=== PATIENT | female | born 1980 | race Caucasian/White ===

== ENCOUNTER 2017-04-24 08:15 | Outpatient (RCR) ==
--- NOTE | 2017-04-14 11:53 | RS.OPPTEV2 ---
Date of Note: 04/11/17 Visit #: 1 Date of Evaluation: 04/11/17 Payer Source: Medicaid Treatment Diagnosis: Low back pain History of Condition/Mechanism of Injury:: Patient reports she has had a history of back pain. 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 States this week she had even more back pain. States she woke up two days ago and could barely walk or sit. Prior Level of Function.....Patient was independent with: ADL's, Self Care, Work /Vocation, Caregiving, Ambulation/Mobility, Community Integration/Access Functional Limitations: Sleep, Self Care, ADL's, Lifting, Sitting, Standing, Ambulation, Community Access/Integration Current Subjective/complaints:: Patient reports having back pain mostly when staying in one position for too long and with bending and lifting. 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 States she does better when she is moving. Prolonged standing or sitting bothers her back. States she has to change positions frequently. She gets some benefit with using a heating pad or taking hot baths. Medical History Medical History: Arthritis (knees, back) Smoking Status: Former smoker Hx Home Medications: Trazadone, Gabapentin, Ibuprofen Pain Assessment - Pain Description Pain Location: lumbosacral area Current Pain Intensity: 9/10 Worst Pain Intensity: not quantified Functional Outcome Measure Oswestry LBP: 46 - G Codes & Severity Modifier G Codes & Modifier: NA Source of G Code score: NA Gait - Gait Pattern Gait Comments: Patient ambulates independently without an assistive device. No obvious gait deviations. - ROM Lumbar Flexion: Hand reach to Mid-Thighs Sidebending to Left: Reach to Mid-thigh Sidebending to Right: Reach to Mid-thigh Lumbar Spine ROM Limitations: Pain Comments: Bilateral LE AROM is WFL's. - Strength Trunk Rotation: 4 Good Comments: Right hip flexion 4 to 4+/5, all else of LE strength is 5/5. - Special Tests JOSE Test: Negative Left, Positive Right SLR Test: Negative Left, Negative Right Seated Dural Stretch Test: Negative Left, Negative Right SI Joint Compression: Positive Palpation Comments:: Right SI region is very tender. Pressure anteriorly to the sacrum is tender. Reports no significant tenderness along the lumbar spine. Demonstrates moderate muscle guarding along the lower lumbar paraspinals bilaterally. Sensation - Sensation Right Lower Extremity: Intact/Normal Left Lower Extremity: Intact/Normal Additional Comments: Additional Comments: Right LE is shorter in supine. This leg length difference is reduced with light stretching to the right hamstring. SLR left to 60 degrees , right 50 degrees. - Treatment Modality: Ultrasound Parameters/Method Applied: X 9 mins over right lumbosacral region @ 1.5 w/cm2 continuous. Patient Position: Left Sidelying Interventions - Exercise/Activities/Manual Therapy Exercises/Activities: Patient instructed in isometric hip flexion for the right hip. Manual Therapy: NA HOME EXERCISE PROGRAM: isometric hip flexion for the right hip. - Charges Total Direct Minutes: 65 mins Total Treatment Time: 65 mins Procedures billed for this date of service:: Low Eval X3, US Assessment Assessment: Patient presents to therapy with a diagnosis of Low back pain. Patient reports difficulty tolerating prolonged standing or sitting. Reports tenderness over right SI region and demonstrates Special Tests positive for SI joint dysfunction. She demonstrates muscle guarding along the lower lumbar spine and limited lumbar AROM. She demonstrates good potential to benefit from activities to address SI dysfunction along the modalities to reduce tenderness and back pain. Patient Education: Education of diagnosis, Body/Joint mechanics, Home Exercise Program, Home Safety, Education of Plan of Care Rehab Potential: Good Short Term Goals Goal #1: Patient independent and compliant in HEP. Goal to be met by: 04/28/17 Goal #2: Right SI tenderness decreased to minimal. Goal to be met by: 04/28/17 Goal #3: Muscle tone along lumbar spine decreased to minimal. Goal to be met by: 04/28/17 [employer] Counselor Goals Goal #1: Pt knows HEP and muscle energy techniques to continue after D/C. Goal to be met by: 05/24/17 Goal #2: Score on Oswestry LBP scale improved to 26. Goal to be met by: 05/24/17 Goal #3: Patient to tolerate prolonged sitting and standing with minimal discomfort. Goal to be met by: 05/24/17 Goal #4: Pt with good understanding of back safety and proper body mechanics. Goal to be met by: 05/24/17 Plan - Treatment to be Provided Procedures: Therapeutic Exercises, Therapeutic Activity, Manual Therapy, Patient Education Modalities: Electrical Stimulation, Ultrasound/Phonophoresis, Cryotherapy, Hot Packs - Treatment Plan Frequency: 3 X week Duration: 4 weeks ORDER # VISITS AND/OR THROUGH DATE: 05/24/17 - Treatment Code (1) Low back pain Qualifiers: Chronicity: acute Back pain laterality: unspecified Sciatica presence: unspecified whether sciatica present Qualified Description: Acute low back pain, unspecified back pain laterality, with sciatica presence unspecified Qualifier Code(s): (M54.5) Low back pain (2) SI (sacroiliac) joint dysfunction Comments: M53.3
--- NOTE | 2017-04-15 09:13 | RS.OPPTDN ---
Subjective Date of Note: 04/15/17 Visit #: 2 Date of Evaluation: 04/11/17 Payer Source: Medicaid Treatment Diagnosis: Low back pain Current Subjective/complaints:: Patient says her pain is 6-7/10 and mostly to the R SI. 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 She is unable to tell if u/s helped at eval, but agreeable to continued treatment. Pain Assessment - Pain Description Pain Location: lumbosacral area Current Pain Intensity: 6-7/10 - Treatment Modality: Ultrasound Parameters/Method Applied: 1.6 w/cm2 continuous to the R lumbar paraspinals and to the SI region x 12 mins Patient Position: Left Sidelying - Heat/Cryotherapy Treatment: Hot Pack (15 mins to the mid to low back in supine) Interventions - Exercise/Activities/Manual Therapy Exercises/Activities: Patient received passive HS, piriformis, and lower trunk rotation stretch to the R LE. She performs isometric hip abd, flexion, pillow squeezes, QS to the R x 10reps. Patient was encouraged to use proper body mechanics (when possible) and reviewed HEP. Recommended her to use pillow support when she lays on her L side. Total minutes of Exercise: 12 Manual Therapy: NA HOME EXERCISE PROGRAM: isometric hip flexion for the right hip. - Charges Total Direct Minutes: 24 Total Treatment Time: 39 Procedures billed for this date of service:: hp, u/s, ex Assessment: Patient jerry modality and therex well. She has reduced pain level compared to eval and also after session today. Activity level at work affects her pain, but she remains positive about PT sessions. Patient Education: Education of diagnosis, Body/Joint mechanics, Home Exercise Program, Home Safety, Activity Modification, Education of Plan of Care Patient demonstrates compliance with HEP?: Yes Short Term Goals Goal #1: Patient independent and compliant in HEP. Goal to be met by: 04/28/17 Progress towards Goal:: Progressing Goal #2: Right SI tenderness decreased to minimal. Goal to be met by: 04/28/17 Goal #3: Muscle tone along lumbar spine decreased to minimal. Goal to be met by: 04/28/17 Intermediate Goals Goal #1: Pt knows HEP and muscle energy techniques to continue after D/C. Goal to be met by: 05/24/17 Goal #2: Score on Oswestry LBP scale improved to 26. Goal to be met by: 05/24/17 Goal #3: Patient to tolerate prolonged sitting and standing with minimal discomfort. Goal to be met by: 05/24/17 Goal #4: Pt with good understanding of back safety and proper body mechanics. Goal to be met by: 05/24/17 Plan PLAN OF CARE EXPIRES ON:: 05/24/17 ORDER # VISITS AND/OR THROUGH DATE: 05/24/17 PLAN: Continue Plan of Care
--- NOTE | 2017-04-18 09:36 | RS.OPPTDN ---
Subjective Date of Note: 04/18/17 Visit #: 3 Date of Evaluation: 04/11/17 Payer Source: Medicaid Treatment Diagnosis: Low back pain Current Subjective/complaints:: Patient says that her last treatment helped, but once she began her shift at work, pain returned. She says she has been performing HEP as well and taking hot baths to reduce pain. Pain Assessment - Pain Description Pain Location: R lumbosacral area Current Pain Intensity: 5/10 - Treatment Modality: Ultrasound Parameters/Method Applied: continuous @ 1.6 w/cm2 x 12 mins to the R lumbar paraspinals and SI joint Patient Position: Left Sidelying - Heat/Cryotherapy Treatment: Hot Pack (mid to low back/SI in supine x 20 mins) Interventions - Exercise/Activities/Manual Therapy Exercises/Activities: Patient received passive HS, piriformis, and lower trunk rotation stretch to the R LE. She performs isometric hip abd, flexion, pillow squeezes, QS to the R x 10reps. Reviewed body mechanics. Patient now has a prescription for flexeril per her request and will begin to take it. Total minutes of Exercise: 16 Manual Therapy: NA HOME EXERCISE PROGRAM: isometric hip flexion for the right hip. - Charges Total Direct Minutes: 28 Total Treatment Time: 48 Procedures billed for this date of service:: hp, u/s, ex Assessment: Patient experiencing pain reduction to the low back and R SI following her last session, but does re-irritate the area by work duties. She remains very tight and guarded with stretches today. Patient Education: Education of diagnosis, Body/Joint mechanics, Home Exercise Program, Home Safety, Activity Modification, Education of Plan of Care Patient demonstrates compliance with HEP?: Yes Short Term Goals Goal #1: Patient independent and compliant in HEP. Goal to be met by: 04/28/17 Progress towards Goal:: Progressing Goal #2: Right SI tenderness decreased to minimal. Goal to be met by: 04/28/17 Goal #3: Muscle tone along lumbar spine decreased to minimal. Goal to be met by: 04/28/17 Residential Goals Goal #1: Pt knows HEP and muscle energy techniques to continue after D/C. Goal to be met by: 05/24/17 Goal #2: Score on Oswestry LBP scale improved to 26. Goal to be met by: 05/24/17 Goal #3: Patient to tolerate prolonged sitting and standing with minimal discomfort. Goal to be met by: 05/24/17 Goal #4: Pt with good understanding of back safety and proper body mechanics. Goal to be met by: 05/24/17 Plan PLAN OF CARE EXPIRES ON:: 05/24/17 ORDER # VISITS AND/OR THROUGH DATE: 05/24/17 PLAN: Progress Exercises
--- NOTE | 2017-04-22 09:29 | RS.OPPTDN ---
Subjective Date of Note: 04/22/17 Date of Evaluation: 04/11/17 Payer Source: Medicaid Treatment Diagnosis: Low back pain Current Subjective/complaints:: Patient says she had a hard shift last night. 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 She says she no longer has the pain behind the R knee and exercises are not bothering her either. Pain Assessment - Pain Description Pain Location: R lumbosacral area Current Pain Intensity: 5/10 - Treatment Modality: Ultrasound Parameters/Method Applied: Continuous 1.6 w/cm2 x 10 mins to R lumbar paraspinals in sidelying - Heat/Cryotherapy Treatment: Hot Pack (mid to low back in supine x 20 mins) Interventions - Exercise/Activities/Manual Therapy Exercises/Activities: Patient received passive HS, piriformis, and lower trunk rotation stretch to the R LE. She performs isometric hip abd, flexion, pillow squeezes, QS to the R x 10reps. Reviewed body mechanics. Total minutes of Exercise: 17 Manual Therapy: NA HOME EXERCISE PROGRAM: isometric hip flexion for the right hip. - Charges Total Direct Minutes: 27 Total Treatment Time: 47 Procedures billed for this date of service:: hp, u/s, ex Assessment: Patient demo improved flexibility to R HS today, no longer has pain to the R posterior knee, and decreased pain to the low back. She has relief with treatment, but symptoms elevate depending on patient load at work. Patient Education: Education of diagnosis, Body/Joint mechanics, Home Exercise Program, Home Safety, Activity Modification, Education of Plan of Care Patient demonstrates compliance with HEP?: Yes Short Term Goals Goal #1: Patient independent and compliant in HEP. Goal to be met by: 04/28/17 Progress towards Goal:: Progressing Goal #2: Right SI tenderness decreased to minimal. Goal to be met by: 04/28/17 Progress towards Goal:: Progressing Goal #3: Muscle tone along lumbar spine decreased to minimal. Goal to be met by: 04/28/17 [employer] Field Technician Goals Goal #1: Pt knows HEP and muscle energy techniques to continue after D/C. Goal to be met by: 05/24/17 Goal #2: Score on Oswestry LBP scale improved to 26. Goal to be met by: 05/24/17 Goal #3: Patient to tolerate prolonged sitting and standing with minimal discomfort. Goal to be met by: 05/24/17 Goal #4: Pt with good understanding of back safety and proper body mechanics. Goal to be met by: 05/24/17 Plan PLAN OF CARE EXPIRES ON:: 05/24/17 ORDER # VISITS AND/OR THROUGH DATE: 05/24/17 PLAN: Continue Plan of Care
--- NOTE | 2017-04-24 09:48 | RS.OPPTDN ---
Subjective Date of Note: 04/24/17 Visit #: 5 Date of Evaluation: 04/11/17 Payer Source: Medicaid Treatment Diagnosis: Low back pain Current Subjective/complaints:: Patient says she is hurting more today. She says she is not sure that it is from her work shift, slept wrong, or cooler weather. Pain Assessment - Pain Description Pain Location: R lumbosacral area Current Pain Intensity: 5/10 - Treatment Modality: Ultrasound Parameters/Method Applied: continuous @ 1.6 w/cm2 x 10 mins to R lumbar paraspinals Patient Position: Left Sidelying - Heat/Cryotherapy Treatment: Hot Pack (mid to low back in supine x 20 mins) Interventions - Exercise/Activities/Manual Therapy Exercises/Activities: Patient continues to receive passive SKTC, HS, piriformis , and lower trunk rotation stretch to the R LE. She performs isometric hip abd , flexion, pillow squeezes, QS to the R x 10reps. SLR 2x5. Reviewed body mechanics. Total minutes of Exercise: 18 Manual Therapy: NA HOME EXERCISE PROGRAM: isometric hip flexion for the right hip. - Charges Total Direct Minutes: 28 Total Treatment Time: 48 Procedures billed for this date of service:: hp, u/s, ex Assessment: Patient with elevated pain today for unknown reason. She maintains pain at 5/10 however. Pain extends to both sides of her back today, but is relieved with modalities and therex today. Improved HS flexibility as well. Patient Education: Education of diagnosis, Body/Joint mechanics, Home Exercise Program, Home Safety, Activity Modification, Education of Plan of Care Patient demonstrates compliance with HEP?: Yes Short Term Goals Goal #1: Patient independent and compliant in HEP. Goal to be met by: 04/28/17 Progress towards Goal:: Progressing Goal #2: Right SI tenderness decreased to minimal. Goal to be met by: 04/28/17 Progress towards Goal:: Progressing Goal #3: Muscle tone along lumbar spine decreased to minimal. Goal to be met by: 04/28/17 Watch [employer] Cutter Goals Goal #1: Pt knows HEP and muscle energy techniques to continue after D/C. Goal to be met by: 05/24/17 Goal #2: Score on Oswestry LBP scale improved to 26. Goal to be met by: 05/24/17 Goal #3: Patient to tolerate prolonged sitting and standing with minimal discomfort. Goal to be met by: 05/24/17 Goal #4: Pt with good understanding of back safety and proper body mechanics. Goal to be met by: 05/24/17 Plan PLAN OF CARE EXPIRES ON:: 05/24/17 ORDER # VISITS AND/OR THROUGH DATE: 05/24/17 PLAN: Continue Plan of Care (continue x 1 more session)
[2017-04-30 07:55] VITALS: BMI 58.1
--- NOTE | 2017-04-30 13:07 | RS.CXNS ---
Date of scheduled appointment: 04/30/17 Type: Cancel Reason for Cancel/NS: Patient leaves message saying she is in the emergency room
== END 2017-05-01 ==
PROVIDERS: ATTEND Physician Assistant
DX: M54.5 Low back pain (principal); M54.6 Pain in thoracic spine

== ENCOUNTER 2017-04-30 07:48 | Emergency (ER) ==
[2017-04-30 07:55] VITALS: BP 126/83; TEMP 99; BMI 58.1
[2017-04-30] MEDS ORDERED: TORADOL IVP STA (08:18)
[2017-04-30] MEDS ORDERED: SODIUM CHLORIDE 1,000 ML IV STA (08:19)
--- NOTE | 2017-04-30 08:23 | ED.PDOC ---
General ED Provider: Dr. 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 --urine has been dark lately--low grade fever at home[ End ]pain since 04/29 99 102 20 98 126/83 04/10 last toradol 0300 Time Seen by Physician: 08:17 Mode of Arrival: Walk-In Information Source: Patient Exam Limitations: No limitations Primary Care Provider: STEFANO WEST Nursing and Triage Documentation Reviewed and Agree: No Review of Systems - Review Of Systems Constitutional: Reports: No symptoms Eyes: Reports: No symptoms Ears, Nose, Mouth, Throat: Reports: No symptoms Respiratory: Reports: No symptoms Cardiac: Reports: Edema GI: Reports: Abdominal pain : Reports: No symptoms Musculoskeletal: Reports: No symptoms Skin: Reports: No symptoms Neurological: Reports: No symptoms Endocrine: Reports: No symptoms Hematologic/Lymphatic: Reports: No symptoms All Other Systems: Other Past Medical History - Past Medical History Endocrine: Reports: None Cardiovascular: Reports: None Respiratory: Reports: Asthma Hematological: Reports: Anemia Gastrointestinal: Reports: None Genitourinary: Reports: Kidney stones Neuro/Psych: Reports: Migraine, Other (tension headaches-fioricet) Musculoskeletal: Reports: None Cancer: Reports: None Last Menstrual Period: has implant--none past 7 yrs Other Pertinent Past Medical History: anemia asthma ks migr cce has implant-- none past 7 yrs - Surgical History General Surgical History: Reports: Cholecystectomy - Family History Family History: Reports: None, Unknown - Social History Smoking Status: Former smoker Hx Substance Use: No Alcohol Screening: None Physical Exam - Physical Exam Appearance: Well-appearing, Obese Pain Distress: Mild Eyes: MARYJO, EOMI, Conjunctiva clear ENT: Ears normal, Nose normal, Oropharynx normal Neck: Supple Respiratory: Airway patent, Breath sounds clear, Breath sounds equal, Respirations nonlabored Cardiovascular: RRR, Pulses normal, No rub, No murmur GI/: Soft, Bowel sounds normal, Tender (right mid abdomen) Musculoskeletal: Normal strength, ROM intact, No edema, No calf tenderness Skin: Warm, Dry, Normal color Neurological: Sensation intact, Motor intact, Reflexes intact, Cranial nerves intact, Alert, Oriented Psychiatric: Affect appropriate, Mood appropriate Critical Care Note - Critical Care Note Total Time (mins): 0 Course - Course Hematology/Chemistry: 04/30/17 08:30 04/30/17 08:30 Orders, Labs, Meds: Lab Review 04/30/17 04/30/17 04/30/17 08:16 08:25 08:30 WBC 9.58 RBC 4.50 Hgb 12.7 Hct 38.7 MCV 86.0 MCH 28.2 MCHC 32.8 RDW Coeff of Cash 13.7 Plt Count 349 Immature Gran % (Auto) 0.3 Neut % (Auto) 70.0 Lymph % (Auto) 23.0 [place] % (Auto) 4.7 Eos % (Auto) 1.4 Baso % (Auto) 0.6 Immature Gran # (Auto) 0.0 Neut # 6.7 Lymph # 2.2 [place] # 0.5 Eos # 0.1 Baso # 0.1 Sodium 139 Potassium 3.9 Chloride 103 Carbon Dioxide 24 Anion Gap 15.9 BUN 15 Creatinine 0.84 Estimated GFR (MDRD) 77.00 BUN/Creatinine Ratio 17.85 Glucose 101 Calcium 9.1 Total Bilirubin 0.31 AST 12 L ALT 14 Alkaline Phosphatase 77 Total Protein 7.5 Albumin 3.5 Globulin 4.0 Albumin/Globulin Ratio 0.88 Amylase 33 Lipase 21 Urine Color Yellow Urine Clarity Clear Urine pH 5.5 Ur Specific [place] 1.020 Urine Protein Negative Urine Glucose (UA) Negative Urine Ketones Negative Urine Blood 2+ Urine Nitrite Negative Urine Bilirubin Negative Urine Urobilinogen 0.2 Ur Leukocyte Esterase Negative Urine Microscopic RBC 5-10 Urine Microscopic WBC 0-2 Ur Squamous Epith Cells 2-5 Urine Test Negative H. pylori IgG Antibody Negative Orders Category Date Time Status ED IV/MEDIPORT/POWERPORT .ONCE EMERGENCY 04/30/17 08:18 Active AMYLASE Stat LAB 04/30/17 08:30 Completed CBC W/ AUTO DIFF Stat LAB 04/30/17 08:30 Completed COMPREHENSIVE METABOLIC PANEL Stat LAB 04/30/17 08:30 Completed H. PYLORI SCREEN Stat LAB 04/30/17 08:30 Completed LIPASE Stat LAB 04/30/17 08:30 Completed URINALYSIS C & S IF INDICATED Stat LAB 04/30/17 08:16 Completed URINE Stat LAB 04/30/17 08:25 Completed 0.9 % Sodium Chloride [Saline Flush] MEDS 04/30/17 08:18 Active 1 syr IVF PRN PRN 0.9 % Sodium Chloride [Saline Flush] MEDS 04/30/17 08:19 Active 1 syr IVF PRN PRN Ketorolac Tromethamine [Toradol] MEDS 04/30/17 08:18 Discontinued 30 mg IVP ONCE STA Ketorolac Tromethamine [Toradol] MEDS 04/30/17 08:51 Discontinued 60 mg IM ONCE STA Sodium Chloride 0.9% [Sodium Chloride] 1,000 ml MEDS 04/30/17 08:[address] ABDOMEN/PELVIS WO CONTRAST Stat RADS 04/30/17 08:18 Completed Medications Generic Name Dose Route Start Last Admin Trade Name Freq PRN Reason Stop Dose Admin Sodium Chloride 1 syr 04/30/17 08:18 Saline Flush IVF PRN PRN To flush IV Sodium Chloride 1 syr 04/30/17 08:19 Saline Flush IVF PRN PRN To flush IV Discontinued Medications Generic Name Dose Route Start Last Admin Trade Name Freq PRN Reason Stop Dose Admin Sodium Chloride 1,000 mls @ 1,000 mls/hr 04/30/17 08:19 04/30/17 09:28 Sodium Chloride IV 04/30/17 09:18 Not Given BOLUS STA Ketorolac Tromethamine 30 mg 04/30/17 08:18 04/30/17 09:28 Toradol IVP 04/30/17 08:19 Not Given ONCE STA Ketorolac Tromethamine 60 mg 04/30/17 08:51 04/30/17 09:01 Toradol IM 04/30/17 08:52 60 mg ONCE STA Administration Vital Signs: Temp Pulse Resp BP Pulse Ox 04/30/17 07:49 99 F 102 H 20 126/83 98 Departure - Departure Time of Disposition: 09:34 Disposition: HOME SELF-CARE Discharge Problem: Abdominal pain, Hematuria Instructions: Acute Abdominal Pain (ED), Hematuria (ED) Condition: Good Pt referred to PMD for follow-up: Yes Additional Instructions: recheck urine one week PMD no evidence stones or hematuria increase fluids Motrin for pain recheck PMD one week discuss abdopminal pain and hematuria sooner if worse return if new symptoms or if fever over 101.0 Prescriptions: Ketorolac Tromethamine [Toradol] 10 mg PO QID PRN #20 tablet PRN Reason: PAIN Orphenadrine Citrate [Norflex] 100 mg PO Q12H PRN #30 tablet.er PRN Reason: Spasms Allergies/Adverse Reactions: Allergies No Known Allergies Allergy (Verified 04/30/17 07:56) Home Medications: Ambulatory Orders Albuterol Sulfate 0.083% Neb [Albuterol 0.083% Neb] 1 vial NEB RTBID 08/23/14 Albuterol Sulfate [Albuterol Sulfate Hfa] 18 gm IH PRN PRN 08/23/14 Butalb/Acetaminophen/Caffeine [Fioricet 50-300-40 mg Capsule] 1 - 2 each PO Q6H PRN 08/23/14 Ibuprofen [Motrin] 800 mg PO PRN PRN 08/23/14 Ketorolac Tromethamine [Toradol] 10 mg PO QID PRN #20 tablet 04/30/17 Orphenadrine Citrate [Norflex] 100 mg PO Q12H PRN #30 tablet.er 04/30/17
[2017-04-30 08:28] LABS: BILIRUBIN,URINE Negative (NEGATIVE); KETONES,URINE Negative (NEGATIVE); LEUKOCYTE ESTERASE ,URINE Negative (NEGATIVE); NITRITE,URINE Negative (NEGATIVE); PH,URINE 5.5 (5-9); PROTEIN,URINE Negative (NEGATIVE); URINE, BLOOD 2+ (NEGATIVE)
[2017-04-30 08:37] LABS: ADD URINE MICROSCOPIC YES
[2017-04-30 08:38] LABS: BASOPHILS # (AUTO) 0.1 K/uL (0-0.2); BASOPHILS % (AUTO) 0.6 % (0.0-3.0); EOSINOPHILS # (AUTO) 0.1 K/ul (0.0-0.7); EOSINOPHILS % (AUTO) 1.4 % (0.0-7.0); HEMATOCRIT 38.7 % (37.0-47.0); HEMOGLOBIN 12.7 g/dl (12.0-16.0); IMMATURE GRANULOCYTE % (AUTO) 0.3 % (0.0-5.0); LYMPHOCYTES # (AUTO) 2.2 K/uL (0.60-3.4); MEAN CORPUSCULAR HEMOGLOBIN 28.2 pg (27.0-31.0); MEAN CORPUSCULAR HGB CONC 32.8 (31.8-35.4); MONOCYTES # (AUTO) 0.5 K/uL (0.4-2.0); MONOCYTES % (AUTO) 4.7 (0-10); NEUTROPHILS # (AUTO) 6.7 K/ul (2.0-6.9); PLATELET COUNT 349 10^3/uL (140-440); WHITE BLOOD COUNT 9.58 K/ul (4.6-10.2)
[2017-04-30 08:42] LABS: URINE PREGNANCY INTERNAL QC INTERNAL QC VALID
[2017-04-30] MEDS ORDERED: TORADOL IM STA (08:51)
[2017-04-30 08:52] LABS: H. PYLORI ANTIBODY NEGATIVE (NEGATIVE); H.PYLORI INTERNAL QC INTERNAL QC VALID
[2017-04-30 08:58] LABS: ALBUMIN 3.5 g/dL (3.4-5.0); ALBUMIN/GLOBULIN RATIO 0.88; ANION GAP 15.9; BILIRUBIN,TOTAL 0.31 mg/dL (0.00-1.20); BUN/CREATININE RATIO 17.85; CALCIUM 9.1 mg/dL (8.2-10.2); CREATININE 0.84 mg/dL (0.60-1.30); POTASSIUM 3.9 mmol/L (3.5-5.10); TOTAL PROTEIN 7.5 g/dL (6.4-8.2)
--- NOTE | 2017-04-30 09:30 | CT ---
EXAM: CT of the abdomen pelvis without contrast History: Abdominal pain. Comparison: CT abdomen pelvis 11/15/2015 Technique: Multiplanar CT images through the abdomen pelvis were obtained without the administratio n of IV contrast Findings: Lung bases are clear. No acute osseous abnormalities. Status post cholecystectomy. No focal liver or splenic lesions. No peripancreatic inflammation. A drenal glands are unremarkable. No renal stones and no hydronephrosis. No ureteral calculi. The a ppendix is normal. No bowel obstruction. No bladder wall thickening. No free air. No ascites. A dnexal structures appear appropriate for patient's age. No perirectal inflammation. Impression: No acute intra-abdominal or pelvic process.
== END 2017-04-30 10:08 | disposition home or self-care (01) ==
LOC: ED 07:48
DX: R10.9 Unspecified abdominal pain (principal); R31.9 Hematuria, unspecified; R50.9 Fever, unspecified; Z87.442 Personal history of urinary calculi
CPT/HCPCS: 36415; 80053; 81001; 81025; 82150; 83690; 85025; 86677; 96372; 99283

== ENCOUNTER 2017-10-03 06:56 | Outpatient (CLI) ==
--- NOTE | 2017-10-03 08:55 | DI ---
EXAM: Three-view left foot COMPARISON: Left ankle from 02/01/2012 HISTORY: Foot pain FINDINGS: There is no acute fracture or dislocation. Alignment is anatomic. Joint spaces are unrema rkable. There is a large calcaneal plantar spur and a smaller calcaneal Achilles spur. There is no s oft tissue swelling. No unexpected radio-opaque foreign bodies. IMPRESSION: 1. No acute osseous abnormality. 2. Calcaneal spurs as described.
== END 2017-10-03 06:57 | disposition home or self-care (01) ==
LOC: RAD 06:56
PROVIDERS: ATTEND Physician Assistant
DX: M79.672 Pain in left foot (principal)